=== PATIENT | female | born 1990 | race Caucasian/White ===

== ENCOUNTER 2017-06-22 15:38 | Emergency (ER) | payer MEDICAID, OTHER ==
[2017-06-22 15:49] VITALS: O2SAT 99
--- NOTE | 2017-06-22 16:25 | XRAY ---
Exam: Two-view chest from 06/22/2017. Comparison: None. Indication: Foreign body check, patient states she swallowed the ball of a tongue ring about one hour before coming to the Emergency Department. Findings: Upright PA and lateral chest films are submitted for evaluation. The heart size and contour are normal. The felecia and mediastinal structures appear unremarkable. I see no radiopaque soft tissue or metallic foreign body within the projection of the thoracic esophagus or gastroesophageal junction. Mild mid thoracic dextroscoliosis is seen. The lungs are adequately inflated. No air space infiltrates, vascular congestion, pneumothorax, or pleural fluid is seen. The remainder the bones appears intact. Impression: 1. No acute cardiopulmonary disease is seen. 2. No metallic or other radiopaque soft tissue foreign body is seen within the projection of the chest, particularly the thoracic esophagus. 3. Mild mid thoracic dextro scoliosis.
--- NOTE | 2017-06-22 16:49 | ERPHSYRPT ---
- History of Present Illness Time Seen by Provider: 06/22/17 16:25 Source: patient Exam Limitations: no limitations Patient Subjective Stated Complaint: Pt states "I was eating a sandwhich and I swallowed my tongue ring and I can feel it in my throat" Triage Nursing Assessment: Pt alert and oriented X3, skin pwd. Pt ambulates without difficulty, able to speak in full sentences, appears in no distress. Physician History: States eating a sandwich today and swallowed her tongue ring. Pt. vomited and gaged several times but denies seeing tongue ring, but states feels like something stuck in my throat. Pt. without any resp. difficulty or swallowing problems. Pt. states feel like something is scratching my throat. Timing/Duration: today Severity: mild Modifying Factors: Improves With: eating (worsens) Associated Symptoms: vomiting, cough, No abdominal pain, No shortness of breath , No diaphoresis, No chest pain, No fever Allergies/Adverse Reactions: Penicillins Allergy (Severe, Verified 06/22/17 15:49) Home Medications: No Reportable Medications [No Reported Medications] 06/22/17 [History] Hx Tetanus, Diphtheria Vaccination/Date Given: No Hx Influenza Vaccination/Date Given: No Hx Pneumococcal Vaccination/Date Given: No Immunizations Up to Date: Yes - Review of Systems Constitutional: No Fever, No Chills Eyes: No Symptoms Ears, Nose, & Throat: No Symptoms, Throat Pain Respiratory: Cough, No Dyspnea Cardiac: No Chest Pain, No Edema, No Syncope Abdominal/Gastrointestinal: Nausea, Vomiting, No Abdominal Pain, No Diarrhea Genitourinary Symptoms: No Symptoms, No Dysuria Musculoskeletal: No Back Pain, No Neck Pain Skin: No Rash Neurological: No Dizziness, No Focal Weakness, No Sensory Changes Psychological: No Symptoms Endocrine: No Symptoms All Other Systems: Reviewed and Negative - Past Medical History Pertinent Past Medical History: No - Past Surgical History Past Surgical History: No - Social History Smoking Status: Current every day smoker How long have you smoked: years Exposure to second hand smoke: Yes Drug Use: none Patient Lives Alone: No - Female History Hx Last Menstrual Period: unknown - Nursing Vital Signs Nursing Vital Signs: Initial Vital Signs Temperature 98.7 F 06/22/17 15:45 Pulse Rate 80 06/22/17 15:45 Respiratory Rate 16 06/22/17 15:45 Blood Pressure 131/57 06/22/17 15:45 O2 Sat by Pulse Oximetry 99 06/22/17 15:45 Pain Scale Pain Intensity 0 - Physical Exam General Appearance: no apparent distress, alert Eye Exam: PERRL/EOMI, eyes nml inspection Ears, Nose, Throat Exam: normal ENT inspection, TMs normal, pharynx normal, moist mucous membranes Neck Exam: normal inspection, non-tender, supple, full range of motion Respiratory Exam: normal breath sounds, lungs clear, No respiratory distress Cardiovascular Exam: regular rate/rhythm, normal heart sounds, normal peripheral pulses Gastrointestinal/Abdomen Exam: soft, normal bowel sounds, No tenderness, No mass Back Exam: normal inspection, normal range of motion, No CVA tenderness, No vertebral tenderness Extremity Exam: normal inspection, normal range of motion, pelvis stable Neurologic Exam: alert, oriented x 3, cooperative, normal mood/affect, nml cerebellar function, nml station & gait, sensation nml, No motor deficits Skin Exam: normal color, warm, dry, No rash Lymphatic Exam: No adenopathy SpO2: 99 Oxygen Delivery: Room Air - Course Nursing assessment & vital signs reviewed: Yes - Radiology Exams Chest X-ray Interpretation: Teleradiologist Report, No Infiltrates, Other (No FB seen) Ordered Tests: Active Orders 24 hr Category Date Time Status CHEST 2 VIEWS (PA AND LAT) Stat Exams 06/22/17 15:46 Completed - Progress Progress: improved Progress Note: 06/22/17 16:47 Pt. able to swallow liquids without difficulty. No resp. distress, O2 sat > 95% . Explained to pt. that there is no sign of FB on CXR and reassured that FB did not go down trachea Counseled pt/family regarding: diagnosis, rad results - Departure Time of Disposition: 16:49 Departure Disposition: Home Clinical Impression: Foreign body ingestion Condition: Stable Critical Care Time: No Referrals: JASMIN TOLEDO [Primary Care Provider] - Additional Instructions: Return for worse sore throat, difficulty swallowing/breathing or any problems
[2017-06-22 16:55] VITALS: BP 125/65; PULSE 78
== END 2017-06-22 16:55 | disposition home or self-care (01) ==
LOC: ED 15:38
DX: T18.9XXA Foreign body of alimentary tract, part unspecified, initial encounter (principal)
CPT/HCPCS: 71020; 99283

== ENCOUNTER 2017-10-27 18:35 | Emergency (ER) | payer OTHER ==
[2017-10-27] MEDS ORDERED: Sodium Chloride 0.9% 1000 ML 1,000 ML IV STA (19:18)
--- NOTE | 2017-10-27 19:26 | ERPHSYRPT ---
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 She had a miscarriage at 5 weeks 3 years ago. She denies cramps, nausea, vomiting, or fever, no severe bleeding only spotting, blood on paper, when she wipes. She is only c/o mild suprapubic pressure, denies urinary complaints, diarrhea, SOB, other complaints. Timing/Duration: today Activites at Onset: none Quality: pressure Onset Location: suprapubic Pain Radiation: none Severity of Pain-Max: none Severity of Pain-Current: none Prior abdominal problems: none Sexual intercourse history: non-contributory Modifying Factors: Improves With: nothing Associated Symptoms: denies symptoms Allergies/Adverse Reactions: Penicillins Allergy (Severe, Verified 10/27/17 19:01) Home Medications: Vits W-Ca,Fe,FA(<1Mg) [] 1 each PO DAILY 10/27/17 [History] Hx Tetanus, Diphtheria Vaccination/Date Given: No Hx Influenza Vaccination/Date Given: No Hx Pneumococcal Vaccination/Date Given: No - Review of Systems Constitutional: No Symptoms Abdominal/Gastrointestinal: Other (suprapubic pressure) Genitourinary Symptoms: Vaginal Bleeding All Other Systems: Reviewed and Negative - Past Medical History Pertinent Past Medical History: Yes - Past Surgical History Past Surgical History: No - Social History Smoking Status: Current every day smoker How long have you smoked: YRS Exposure to second hand smoke: No Drug Use: none Patient Lives Alone: No - Female History Hx Last Menstrual Period: SEP 05 2017 Hx Now: Yes - Nursing Vital Signs Nursing Vital Signs: Initial Vital Signs Temperature 98.7 F 10/27/17 18:56 Pulse Rate 87 10/27/17 18:56 Respiratory Rate 20 10/27/17 18:56 Blood Pressure 128/63 10/27/17 18:56 O2 Sat by Pulse Oximetry 97 10/27/17 18:56 Pain Scale Pain Intensity 2 - Physical Exam General Appearance: no apparent distress Ears, Nose, Throat Exam: normal ENT inspection Neck Exam: normal inspection, non-tender Respiratory Exam: normal breath sounds Cardiovascular Exam: regular rate/rhythm, normal heart sounds, normal peripheral pulses, No murmur Gastrointestinal/Abdomen Exam: soft, normal bowel sounds, No tenderness, No distention, No mass Pelvic Exam: normal external exam, other (small amount of "old " blood in vagina , no active bleeding, os closed), No adnexal tenderness, No adnexal mass, No cervical motion tenderness, No vaginal bleeding, No uterine tenderness, No vaginal discharge Back Exam: normal inspection, No CVA tenderness Extremity Exam: normal inspection Neurologic Exam: alert, oriented x 3 Skin Exam: normal color, warm, dry, No rash Lymphatic Exam: No adenopathy SpO2 Interpretation: normal SpO2: 97 Oxygen Delivery: Room Air - Radiology Ultrasound Exam Pelvis Ultrasound: Other (no obvious intrauterine noted) Ordered Tests: Active Orders 24 hr Category Date Time Status IV Insertion STAT Care 10/27/17 19:18 Active Pelvic Exam Assist STAT Care 10/27/17 19:18 Active OB <14 WKS 1ST GESTATION [US] Stat Exams 10/27/17 19:19 Taken CBC W DIFF Stat Lab 10/27/17 19:40 Completed CMP Stat Lab 10/27/17 19:40 Completed CULTURE,URINE Stat Lab 10/27/17 19:40 Received HCG, Quantitative (Inhouse) Stat Lab 10/27/17 19:40 Completed PT INR [PROTIME WITH INR] Stat Lab 10/27/17 19:40 Completed UA W/ MICROSCOPIC Stat Lab 10/27/17 19:40 Completed Wet Prep Stat Lab 10/27/17 Uncollected Medication Summary Discontinued Medications Generic Name Dose Route Start Last Admin Trade Name Freq PRN Reason Stop Dose Admin Sodium Chloride 1,000 mls @ 999 mls/hr 10/27/17 19:18 10/27/17 19:38 Sodium Chloride 0.9% 1000 Ml IV 10/27/17 20:18 999 mls/hr .Q1H1M STA Administration Sodium Chloride Confirm 10/27/17 19:31 Sodium Chloride 0.9% 1000 Ml Administered 10/27/17 19:32 Dose 1,000 mls @ ud .ROUTE .STK-MED ONE Nitrofurantoin Macrocrystals 100 mg 10/27/17 21:28 Macrobid 100mg Capsule PO 10/27/17 21:29 STAT ONE Rho Immune Globulin 300 mcg 10/27/17 21:28 Rhogam Plus 300 Mcg IM 10/27/17 21:29 STAT ONE Lab/Rad Data: Laboratory Result Diagrams 10/27/17 19:40 10/27/17 19:40 Laboratory Results 10/27/17 10/27/17 10/27/17 Range/Units 19:40 19:40 19:40 WBC (4.0-10.5) K/mm3 RBC (4.1-5.4) M/mm3 Hgb (12.0-16.0) gm/dl Hct (35-47) % MCV (78-100) fl MCH (26-32) pg MCHC (32-36) g/dl RDW (11.5-14.0) % Plt Count (150-450) K/mm3 MPV (6-9.5) fl Gran % (36.0-66.0) % Lymphocytes % (24.0-44.0) % Monocytes % (0.0-12.0) % Eosinophils % (0.00-5.0) % Basophils % (0.0-0.4) % Basophils # (0-0.4) INR 1.05 (0.8-3.0) Sodium (136-145) mEq/L Potassium (3.5-5.1) mEq/L Chloride (98-107) mEq/L Carbon Dioxide (21-32) mEq/L Anion Gap (5-15) MEQ/L BUN (9-20) mg/dL Creatinine (0.55-1.30) mg/dl Estimated GFR ML/MIN Glucose (70-110) MG/DL Calcium (8.5-10.1) mg/dL Total Bilirubin (0.2-1.0) mg/dL AST (15-37) U/L ALT (12-78) U/L Alkaline Phosphatase (46-116) U/L Serum Total Protein (6.4-8.2) gm/dL Albumin (3.4-5.0) g/dL Beta HCG, Quant (0-6) IU/L Ur Collection Type CLEAN CATCH Urine Color YELLOW (YELLOW) Urine Appearance SLIGHTLY CLOUDY (CLEAR) Urine pH 5.0 (5-6) Ur Specific [place] 1.030 (1.005-1.025) Urine Protein 30 (Negative) Urine Ketones NEGATIVE (NEGATIVE) Urine Blood 250 (0-5) Lior/ul Urine Nitrite NEGATIVE (NEGATIVE) Urine Bilirubin NEGATIVE (NEGATIVE) Urine Urobilinogen NORMAL (0-1) mg/dL Ur Leukocyte Esterase 1+ (NEGATIVE) Urine Microscopic RBC 5-10 (0-2) /HPF Urine Microscopic WBC 15-25 (0-5) /HPF Ur Epithelial Cells MODERATE (FEW) /HPF Calcium Oxalate Crystal 5-10 (NEGATIVE) /HPF Urine Bacteria FEW (NEGATIVE) /HPF Urine Culture Reflexed YES (NO) Urine Glucose NEGATIVE (NEGATIVE) mg/dL Specimen Received 10/27/171939 ABO Group A Rh Factor NEGATIVE Antibody Screen NEGATIVE (NEGATIVE) 10/27/17 10/27/17 Range/Units 19:40 19:40 WBC 13.0 H (4.0-10.5) K/mm3 RBC 4.09 L (4.1-5.4) M/mm3 Hgb 12.5 (12.0-16.0) gm/dl Hct 37.8 (35-47) % MCV 92.4 (78-100) fl MCH 30.5 (26-32) pg MCHC 33.1 (32-36) g/dl RDW 12.3 (11.5-14.0) % Plt Count 228 (150-450) K/mm3 MPV 10.3 H (6-9.5) fl Gran % 59.5 (36.0-66.0) % Lymphocytes % 31.4 (24.0-44.0) % Monocytes % 7.9 (0.0-12.0) % Eosinophils % 0.8 (0.00-5.0) % Basophils % 0.4 (0.0-0.4) % Basophils # 0.05 (0-0.4) INR (0.8-3.0) Sodium 140 (136-145) mEq/L Potassium 3.8 (3.5-5.1) mEq/L Chloride 104 (98-107) mEq/L Carbon Dioxide 26.8 (21-32) mEq/L Anion Gap 13.4 (5-15) MEQ/L BUN 9 (9-20) mg/dL Creatinine 1.01 (0.55-1.30) mg/dl Estimated GFR > 60 ML/MIN Glucose 96 (70-110) MG/DL Calcium 8.9 (8.5-10.1) mg/dL Total Bilirubin 0.20 (0.2-1.0) mg/dL AST 20 (15-37) U/L ALT 30 (12-78) U/L Alkaline Phosphatase 80 (46-116) U/L Serum Total Protein 7.8 (6.4-8.2) gm/dL Albumin 4.1 (3.4-5.0) g/dL Beta HCG, Quant 1650 H (0-6) IU/L Ur Collection Type Urine Color (YELLOW) Urine Appearance (CLEAR) Urine pH (5-6) Ur Specific [place] (1.005-1.025) Urine Protein (Negative) Urine Ketones (NEGATIVE) Urine Blood (0-5) Lior/ul Urine Nitrite (NEGATIVE) Urine Bilirubin (NEGATIVE) Urine Urobilinogen (0-1) mg/dL Ur Leukocyte Esterase (NEGATIVE) Urine Microscopic RBC (0-2) /HPF Urine Microscopic WBC (0-5) /HPF Ur Epithelial Cells (FEW) /HPF Calcium Oxalate Crystal (NEGATIVE) /HPF Urine Bacteria (NEGATIVE) /HPF Urine Culture Reflexed (NO) Urine Glucose (NEGATIVE) mg/dL Specimen Received ABO Group Rh Factor Antibody Screen (NEGATIVE) - Progress Progress: improved Progress Note: 10/27/17 21:35 Pt had no active bleeding, stable hemodynamically, she is A negative, given 300 microgm Rhogam, and 100 mg Macrobid PO for UTI. I explained the results to her, and the need for a follow up HCG in 2 days, she understood, she has appointment scheduled with Dr Fry on Tuesday AM ( 10/31/17). 10/27/17 21:[address] Fry, discussed our findings and patient's current condition, he agreed with our plan to discharge her home, and will follow up as scheduled with her HCG level. I instructed her to rest drink plenty of fluids, and return if severe pain, bleeding, fever> 102F, she understood, and will follow up with Dr Fry as scheduled. Discussed with : Ang Will see patient in: office Counseled pt/family regarding: lab results, diagnosis, need for follow-up, rad results - Departure Time of Disposition: 21:41 Departure Disposition: Home Clinical Impression: Vaginal bleeding affecting early UTI (urinary tract infection) Qualifiers: Urinary tract infection type: site unspecified Hematuria presence: without hematuria Qualified Code(s): N39.0 - Urinary tract infection, site not specified Condition: Stable Critical Care Time: No Referrals: JASMIN TOLEDO [Primary Care Provider] - Additional Instructions: Rest x 2-3 days, nothing vaginally, drink plenty of fluids, return if severe pain, vomiting, fever> 102 F or severe bleeding, weakness! Return to lab in 2 days for repeat labs, and keep appointment with Dr Fry as scheduled!
[2017-10-27] MEDS ORDERED: Sodium Chloride 0.9% 1000 ML 1,000 ML ONE (19:31)
[2017-10-27 19:54] LABS: BASOPHIL % 0.4 % (0.0-0.4); Basophil (Absolute #) 0.05 (0-0.4); Eosinophil % 0.8 % (0.00-5.0); Eosinophil (Absolute #) 0.11 (0-0.5); Granulocyte Absolute (ANC) 7.75 (1.4-6.9); Granulocytes % 59.5 % (36.0-66.0); Hematocrit 37.8 % (35-47); Hemoglobin 12.5 gm/dl (12.0-16.0); Lymphocytes % 31.4 % (24.0-44.0); Mean Cell Volume 92.4 fl (78-100); Mean Corpuscular Hgb Concent. 33.1 g/dl (32-36); Mean Platelet Volume 10.3 fl (6-9.5); Monocyte (Absolute #) 1.03 (0.0-1.3); Monocytes % 7.9 % (0.0-12.0); Platelet Count 228 K/mm3 (150-450); Red Blood Count 4.09 M/mm3 (4.1-5.4); Red Cell Distribution Width 12.3 % (11.5-14.0)
[2017-10-27 20:08] LABS: INR 1.05 (0.8-3.0)
[2017-10-27 20:24] LABS: Mean Corpuscular Hemoglobin 30.5 pg (26-32)
[2017-10-27 20:36] LABS: Appearance SLIGHTLY CLOUDY (CLEAR)
[2017-10-27 20:41] LABS: ALBUMIN 4.1 g/dL (3.4-5.0); ALKALINE PHOSPHATASE 80 U/L (46-116); ANION GAP 13.4 MEQ/L (5-15); BLOOD UREA NITROGEN 9 mg/dL (9-20); CHLORIDE 104 mEq/L (98-107); Calcium 8.9 mg/dL (8.5-10.1); Carbon Dioxide 26.8 mEq/L (21-32); Creatinine 1 1.01 mg/dl (0.55-1.30); EST GLOMERULAR FILTRATION RATE > 60 ML/MIN; Glucose 96 MG/DL (70-110); HCG, Quantitative (Inhouse) 1650 IU/L (0-6); Potassium 3.8 mEq/L (3.5-5.1); SGOT/AST 20 U/L (15-37); SGPT/ALT 30 U/L (12-78); SODIUM 140 mEq/L (136-145); Total Protein 7.8 gm/dL (6.4-8.2)
[2017-10-27 20:44] LABS: ABO TYPING A; Antibody Screen NEGATIVE (NEGATIVE); RH TYPING NEGATIVE
[2017-10-27 21:08] VITALS: O2SAT 97
[2017-10-27 21:11] LABS: Bilirubin NEGATIVE (NEGATIVE); Blood 250 Ery/ul (0-5); Glucose NEGATIVE (NEGATIVE); Ketones NEGATIVE (NEGATIVE); Leukocyte Esterase 1+ (NEGATIVE); Nitrite NEGATIVE (NEGATIVE); Protein,Urine Dip 30 (Negative); Urobilinogen NORMAL mg/dL (0-1); WBC 15-25 /HPF (0-5)
[2017-10-27 21:12] LABS: Bacteria FEW /HPF (NEGATIVE); Epithelial Cells MODERATE /HPF (FEW)
[2017-10-27] MEDS ORDERED: Rhogam Plus 300 MCG IM ONE (21:28)
[2017-10-27] MEDS ORDERED: Macrobid 100MG Capsule PO ONE (21:28)
[2017-10-27] MEDS ORDERED: Macrobid 100MG Capsule ONE (22:10)
[2017-10-27 22:25] LABS: Bacteria Rare; Clue Cells None Seen; Red Blood Cells Rare; Trichomonas None Seen; White Blood Cells Rare; Yeast None Seen
[2017-10-27 22:30] VITALS: BP 122/68; PULSE 82
--- NOTE | 2017-10-28 09:04 | XRAY ---
Indication: Vaginal bleeding. 8 weeks . Two-dimensional transabdominal early OB ultrasound performed. Comparison: None Uterus is anteverted with a single intrauterine gestational sac measuring 0.52 cm, too small to calculate gestational age. No pole or heart tones. 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 No abnormal endometrial cavity fluid collection. Right ovary measures 3.6 x 1.3 x 3.1 cm and the left measures 2.9 x 2.1 x 2.2 cm. Normal perfusion bilaterally. No suspicious adnexal mass or free fluid. Impression: Single intrauterine gestational sac too small to calculate gestational age. No pole/heart tones. Mobile gestational sac for which early spontaneous not completely excluded. Correlate with serial beta-hCG and follow-up sonogram. Comment: Preliminary report was given.
== END 2017-10-27 22:30 | disposition home or self-care (01) ==
LOC: ED 18:35
DX: O46.91 Antepartum hemorrhage, unspecified, first trimester (principal); O23.41 Unspecified infection of urinary tract in pregnancy, first trimester; Z3A.08 8 weeks gestation of pregnancy
CPT/HCPCS: 36000; 36415; 76801; 80053; 81000; 84702; 85025; 85610; 86850; 86900; 86901; 87086; 87210; 87490; 87590; 96372; 99284; J2790; A9270-GY

== ENCOUNTER 2018-10-21 11:40 | Inpatient (IN) | payer OTHER | END 2018-10-23 10:55 | disposition home or self-care (01) | DRG 807 | LOC: OB 11:40 | PROC: 10E0XZZ Delivery of Products of Conception, External Approach (ICD-10-PCS; principal; 2018-10-21) | DX: O80 Encounter for full-term uncomplicated delivery (principal); Z37.0 Single live birth; Z3A.38 38 weeks gestation of pregnancy ==

== ENCOUNTER 2019-09-09 14:30 | Emergency (ER) | payer OTHER ==
[2019-09-09 14:44] VITALS: BP 123/84; PULSE 91; O2SAT 100
[2019-09-09] MEDS ORDERED: BACTRIM DS TABLET PO ONE ×2 (15:36→16:42)
[2019-09-09] MEDS ORDERED: DELTASONE 10 MG PO ONE (15:37)
--- NOTE | 2019-09-09 16:04 | ERPHSYRPT ---
- History of Present Illness Time Seen by Provider: 09/09/19 14:55 Source: patient Exam Limitations: no limitations Patient Subjective Stated Complaint: Insect bite Triage Nursing Assessment: Patient ambulated into ED and transferred self to bed. Patient A+O X3. Patient's skin pink, warm and dry. Patient complains of insect bite possible spider bite to top of right arm. Patient denies pain or discomfort. Patient has hard, round area with warmth and redness noted to right arm. Physician History: 28 y/o white female presents with one day h/o worsening right inner forearm redness. pt noticed a central punctate eschar yesterday. redness expanding outwardly. minimal pain. no drainage. no odor. pt had been using antibx ointment without benefit. Severity: mild Location: extremities (right upper ext forearm) Possible Causes: insect bite Associated Symptoms: change in skin texture, other (redness) Allergies/Adverse Reactions: Penicillins Allergy (Severe, Verified 09/09/19 14:36) Hx Tetanus, Diphtheria Vaccination/Date Given: No Hx Influenza Vaccination/Date Given: No Hx Pneumococcal Vaccination/Date Given: No Immunizations Up to Date: Yes - Review of Systems Constitutional: No Symptoms Eyes: No Symptoms Ears, Nose, & Throat: No Symptoms Respiratory: No Symptoms Cardiac: No Symptoms Abdominal/Gastrointestinal: No Symptoms Genitourinary Symptoms: No Symptoms Musculoskeletal: No Symptoms Skin: Cellulitis Neurological: No Symptoms Psychological: No Symptoms Endocrine: No Symptoms Hematologic/Lymphatic: No Symptoms Immunological/Allergic: No Symptoms All Other Systems: Reviewed and Negative - Past Medical History Pertinent Past Medical History: No Neurological History: No Pertinent History ENT History: No Pertinent History Cardiac History: No Pertinent History Respiratory History: No Pertinent History Endocrine Medical History: No Pertinent History Musculoskeletal History: No Pertinent History GI Medical History: No Pertinent History History: No Pertinent History Psycho-Social History: No Pertinent History Female Reproductive Disorders: No Pertinent History - Past Surgical History Past Surgical History: No Neuro Surgical History: No Pertinent History Cardiac: No Pertinent History Respiratory: No Pertinent History Gastrointestinal: No Pertinent History Genitourinary: No Pertinent History Musculoskeletal: No Pertinent History Female Surgical History: No Pertinent History - Social History Smoking Status: Current every day smoker How long have you smoked: years Exposure to second hand smoke: No Drug Use: none Patient Lives Alone: No - Female History Hx Last Menstrual Period: last week Hx Now: No - Nursing Vital Signs Nursing Vital Signs: Initial Vital Signs Temperature 98.9 F 09/09/19 14:37 Pulse Rate 91 H 09/09/19 14:37 Respiratory Rate 18 09/09/19 14:37 Blood Pressure 123/84 09/09/19 14:37 O2 Sat by Pulse Oximetry 100 09/09/19 14:37 Pain Scale Pain Intensity 0 - Physical Exam General Appearance: no apparent distress, alert Eye Exam: PERRL/EOMI, eyes nml inspection Ears, Nose, Throat Exam: normal ENT inspection, moist mucous membranes Neck Exam: normal inspection, non-tender, supple, full range of motion Respiratory Exam: No chest tenderness Cardiovascular Exam: normal peripheral pulses Gastrointestinal/Abdomen Exam: No tenderness Pelvic Exam: not done Rectal Exam: not done Back Exam: normal inspection, normal range of motion, CVA tenderness, No vertebral tenderness Extremity Exam: normal range of motion, pelvis stable, inflammation, swelling ( right forearm), tenderness (mild) Neurologic Exam: alert, oriented x 3, cooperative, 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 no pus. ) Lymphatic Exam: No adenopathy SpO2 Interpretation: normal SpO2: 100 O2 Delivery: Room Air - Course Nursing assessment & vital signs reviewed: Yes Ordered Tests: Medication Summary Discontinued Medications Generic Name Dose Route Start Last Admin Trade Name Freq PRN Reason Stop Dose Admin Prednisone 10 mg 09/09/19 15:37 Deltasone 10 Mg PO 09/09/19 15:38 STAT ONE Trimethoprim/Sulfamethoxazole 1 tab 09/09/19 15:36 Bactrim Ds Tablet PO 09/09/19 15:37 STAT ONE - Progress Progress: unchanged Counseled pt/family regarding: diagnosis, need for follow-up - Departure Departure Disposition: Home Clinical Impression: Cellulitis Condition: Stable Critical Care Time: No Referrals: MACARENA MORE MD [Primary Care Provider] - Additional Instructions: keep site clean daily with soap and water. no ointments, lotion or creams. take medications as prescribed. follow up with primary doctor for further management Prescriptions: Prednisone 10 mg [Deltasone 10 mg] 10 mg PO BID #6 tablet Smz/Tmp Ds Tablet [Bactrim Ds Tablet] 1 udtab PO BID #14 tablet
[2019-09-09] MEDS ORDERED: DELTASONE 20 MG ONE (16:42)
== END 2019-09-09 16:56 | disposition home or self-care (01) ==
LOC: ED 14:30
DX: L03.113 Cellulitis of right upper limb (principal); W57.XXXA Bitten or stung by nonvenomous insect and other nonvenomous arthropods, initial encounter; Y93.9 Activity, unspecified
CPT/HCPCS: 99283; A9270-GY

== ENCOUNTER 2020-12-22 17:37 | Inpatient (IN) | payer OTHER ==
[2020-12-22] MEDS ORDERED: Compazine 10 MG/2 ML IM PRN (18:55)
[2020-12-22] MEDS ORDERED: Lactated Ringers 1,000 ML IV ONE (20:00)
[2020-12-22] MEDS ORDERED: TYLENOL EXTRA STRENGTH 500 MG PO PRN (20:00)
[2020-12-22] MEDS ORDERED: Ephedrine Sulfate 50 MG/ML IV PRN (20:00)
[2020-12-22] MEDS ORDERED: PITOCIN 30 UNITS/ LR 500 ML 30 UNITS/500 ML IV.SOLN. IV SCH (20:00)
[2020-12-22 21:03] LABS: INR 1.05 (0.8-3.0); PROTIME 11.9 SECONDS (9.95-12.35)
[2020-12-22 21:04] LABS: BASOPHIL % 0.2 % (0.0-0.4); Basophil (Absolute #) 0.03 (0-0.4); Eosinophil % 0.3 % (0.00-5.0); Eosinophil (Absolute #) 0.05 (0-0.5); Hematocrit 31.4 % (35-47); Lymphocyte (Absolute #) 3.27 (1.0-4.6); Lymphocytes % 19.1 % (24.0-44.0); Mean Cell Volume 96.9 fl (78-100); Mean Corpuscular Hemoglobin 30.9 pg (26-32); Mean Corpuscular Hgb Concent. 31.8 g/dl (32-36); Monocyte (Absolute #) 0.68 (0.0-1.3); Neutrophil % 76.4 % (36.0-66.0); Platelet Count 321 K/mm3 (150-450); Red Blood Count 3.24 M/mm3 (4.1-5.4); Red Cell Distribution Width 12.7 % (11.5-14.0); White Blood Count 17.1 K/mm3 (4.0-10.5)
[2020-12-22 21:05] LABS: PTT 25.4 SECONDS (25.3-37.0)
[2020-12-22 21:29] LABS: Amphetamine,Urine NEGATIVE (NEGATIVE); Barbiturate,Urine NEGATIVE (NEGATIVE); Benzodiazepine,Urine NEGATIVE (NEGATIVE); Cocaine,Urine NEGATIVE (NEGATIVE); Methadone,Urine NEGATIVE (NEGATIVE); Opiate,Urine NEGATIVE (NEGATIVE); PCP,Urine NEGATIVE (NEGATIVE); THC,Urine NEGATIVE (NEGATIVE)
[2020-12-22 21:44] LABS: ALBUMIN 3.7 g/dL (3.5-5.0); ALKALINE PHOSPHATASE 111 U/L (38-126); Creatinine 1 0.69 mg/dL (0.52-1.04); EST GLOMERULAR FILTRATION RATE > 60.0 ML/MIN; SGOT/AST 23 U/L (14-36); SGPT/ALT 16 U/L (0-35); T4 (Thyroxine) 12.2 ug/dL (5.53-10.96); Total Protein 6.9 g/dL (6.3-8.2)
[2020-12-22] MEDS: OB EPIDURAL NAROPIN/SUFENTANIL IN NACL EPIDURAL PRN (22:00)
[2020-12-22] MEDS: Lactated Ringers 1,000 ML IV SCH (22:00)
[2020-12-22 22:02] LABS: Direct Bilirubin 0 mg/dL (0.0-0.4)
[2020-12-23] MEDS: Lactated Ringers 1,000 ML IV SCH ×2 (03:56→08:59)
--- NOTE | 2020-12-23 08:43 | XRAY ---
Indication: demise. Comparison: Taken earlier in the day. Repeat limited OB ultrasound again demonstrates a single intrauterine . Again no heart tones or movements favoring demise. Comment: Preliminary report was given.
[2020-12-23] MEDS: OB EPIDURAL NAROPIN/SUFENTANIL IN NACL EPIDURAL PRN (09:03)
[2020-12-23] MEDS ORDERED: Dermoplast Spray TP PRN (13:47)
[2020-12-23] MEDS ORDERED: MOTRIN 400 MG PO PRN (13:47)
[2020-12-23] MEDS ORDERED: TUCKS TP PRN (13:47)
[2020-12-23] MEDS ORDERED: NORCO 5/325 MG PO PRN (13:47)
[2020-12-23] MEDS ORDERED: Rhogam Plus 300 MCG IM ONE (16:00)
[2020-12-23 20:57] VITALS: BP 124/70; PULSE 74; O2SAT 100
[2020-12-24] MEDS ORDERED: FERREX 150 PO SCH (10:00)
--- NOTE | 2020-12-24 13:27 | DS ---
ADMISSION DIAGNOSIS: demise 30 weeks and 4 days. DISCHARGE DIAGNOSES: 1) DEMISE STATUS POST SPONTANEOUS VAGINAL DELIVERY. 2) CORD ACCIDENT. HOSPITAL COURSE: The patient is a 30 year-old 6, para 3-0-2-3, who was seen in the office on 12/22/2020. She was 30 weeks and 4 days estimated gestational age with no previous problems. heart tones were unable to be auscultated in the office therefore she was sent for ultrasound which showed no heart activity or movement consistent with demise. She was admitted to the hospital and received vaginal Cytotec 50 mcg x3 doses and progressed 3 to 4 cm. Following the third dose four hours later she was started on Pitocin and delivered a 30 week nonviable male from the vertex presentation with an extremely tight nuchal cord x3 reduced at delivery with a true knot in the cord. No other obvious abnormalities were appreciable on exam of the fetus. The placenta was delivered spontaneously intact. It was sent for pathology as well as chromosomal testing. The placenta appeared to be fully intact with no obvious gross abnormalities on exam. She had minimal lochia and no pain following delivery therefore she requested to be discharged home later in the evening after delivery and was advised to follow up in the office in one week. She had no repair during delivery and very minimal blood loss at the time of delivery as well. DISCHARGE MEDICATIONS: Ferrous sulfate 325 mg twice a day, Colace 100 mg twice a day. DISCHARGE FOLLOW UP: She was advised to follow up in one week. She was offered bereavement counseling resources and support with offering of arrangements, etc.
== END 2020-12-23 20:45 | disposition home or self-care (01) | DRG 806 ==
LOC: MED SURG 18:49 → OBSVTOIN 21:25
PROVIDERS: ADMIT Family Medicine; ATTEND Family Medicine
PROC: 10E0XZZ Delivery of Products of Conception, External Approach (ICD-10-PCS; principal; 2020-12-22)
DX: O36.4XX0 Maternal care for intrauterine death, not applicable or unspecified (principal); O04.89 (Induced) termination of pregnancy with other complications; Z37.1 Single stillbirth; O69.2XX0 Labor and delivery complicated by other cord entanglement, with compression, not applicable or unspecified; Z3A.30 30 weeks gestation of pregnancy
CPT/HCPCS: 36415; 76815; 76816; 80076; 80307; 81003; 81241; 82565; 84436; 84443; 85025; 85300; 85384; 85461; 85610; 85613; 85670; 85730; 86592; 86644; 86645; 86747; 86850; 86870; 87040; 87254; G0378; J2590; J2790; J2795; A9270-GY

== ENCOUNTER 2021-09-03 10:08 | Observation (INO) | payer OTHER ==
[2021-09-07 16:57] VITALS: BP 132/70; PULSE 75
== END 2021-09-03 11:10 | disposition home or self-care (01) ==
LOC: OB 10:08
PROVIDERS: ADMIT Family Medicine; ATTEND Family Medicine
DX: Z34.83 Encounter for supervision of other normal pregnancy, third trimester (principal); Z3A.28 28 weeks gestation of pregnancy; Z87.59 Personal history of other complications of pregnancy, childbirth and the puerperium
CPT/HCPCS: 59025; G0378

== ENCOUNTER 2021-09-07 11:11 | Observation (INO) | payer OTHER ==
[2021-09-07 11:49] LABS: Absolute Neutrophil Ct (ANC) 13.94 (1.4-6.9); BASOPHIL % 0.2 % (0.0-0.4); Basophil (Absolute #) 0.03 (0-0.4); Eosinophil % 0.6 % (0.00-5.0); Eosinophil (Absolute #) 0.11 (0-0.5); Hematocrit 31.9 % (35-47); Hemoglobin 10.1 gm/dl (12.0-16.0); Lymphocyte (Absolute #) 3.29 (1.0-4.6); Lymphocytes % 17.9 % (24.0-44.0); Mean Cell Volume 98.2 fl (78-100); Mean Corpuscular Hemoglobin 31.1 pg (26-32); Mean Corpuscular Hgb Concent. 31.7 g/dl (32-36); Mean Platelet Volume 8.9 fl (7.5-11.0); Monocyte (Absolute #) 0.97 (0.0-1.3); Monocytes % 5.3 % (0.0-12.0); Platelet Count 301 K/mm3 (150-450); Red Blood Count 3.25 M/mm3 (4.1-5.4); Red Cell Distribution Width 12.6 % (11.5-14.0); White Blood Count 18.3 K/mm3 (4.0-10.5)
[2021-09-07 12:05] LABS: ALBUMIN 3.4 g/dL (3.5-5.0); ALKALINE PHOSPHATASE 92 U/L (38-126); ANION GAP 9.7 MEQ/L (5-15); BLOOD UREA NITROGEN 9 mg/dL (7-17); CHLORIDE 107 mmol/L (98-107); Calcium 8.8 mg/dL (8.4-10.2); Carbon Dioxide 24 mmol/L (22-30); Creatinine 1 0.69 mg/dL (0.52-1.04); EST GLOMERULAR FILTRATION RATE > 60.0 ML/MIN; Glucose 90 mg/dL (74-106); Potassium 4.1 mmol/L (3.5-5.1); SGOT/AST 18 U/L (14-36); SGPT/ALT 14 U/L (0-35); SODIUM 137 mmol/L (137-145); Total Protein 6.3 g/dL (6.3-8.2); Uric Acid 4.8 mg/dL (2.6-6.0)
--- NOTE | 2021-09-07 12:37 | XRAY ---
Indication: -induced hypertension. Evaluate NAIMA. Limited OB ultrasound demonstrates a single intrauterine with heart rate 125 BPM. 4 quadrant NAIMA is 15.6 cm, largest pocket 5.3 cm.
[2021-09-07 17:13] VITALS: BP 132/70; PULSE 75
== END 2021-09-07 13:10 | disposition home or self-care (01) ==
LOC: OB 11:11
PROVIDERS: ADMIT Family Medicine; ATTEND Family Medicine
DX: Z34.83 Encounter for supervision of other normal pregnancy, third trimester (principal); Z3A.29 29 weeks gestation of pregnancy; R03.0 Elevated blood-pressure reading, without diagnosis of hypertension
CPT/HCPCS: 36415; 59025; 76815; 80053; 84550; 85025; G0378

== ENCOUNTER 2021-09-16 09:00 | Observation (INO) | payer OTHER ==
[2021-09-16 10:07] VITALS: BP 114/59; PULSE 70
--- NOTE | 2021-09-16 10:10 | XRAY ---
Indication: Hypertension. Ultrasound biophysical profile study performed. Comparison: None Single intrauterine with heart rate 155 BPM. Four-quadrant NIAMA is 15.6 cm, largest pocket 7 cm. 2 points given for breathing, movement, tone, and qualitative amniotic fluid volume. Impression: Total biophysical profile score is 8 out of 8.
[2021-09-16 10:50] LABS: 24 HR TOT. PROTEIN CALCULATION 0.486 GM/DAY (0.04-0.15); CREATININE CLEARANCE 234.24 ML/MIN; Creatinine Urine 89.3 mg/dL
== END 2021-09-16 10:45 | disposition home or self-care (01) ==
LOC: OB 09:00
PROVIDERS: ADMIT Family Medicine; ATTEND Family Medicine
DX: O09.93 Supervision of high risk pregnancy, unspecified, third trimester (principal); Z3A.30 30 weeks gestation of pregnancy
CPT/HCPCS: 59025; 76818; 81050; 82575; 84156; G0378

== ENCOUNTER 2021-09-22 08:04 | Observation (INO) | payer OTHER ==
[2021-09-22 10:12] VITALS: BP 115/64; PULSE 77; O2SAT 98
--- NOTE | 2021-09-22 10:22 | XRAY ---
Indication: Supervision . Ultrasound biophysical profile study performed. Comparison: September 16, 2021. Again single intrauterine with heart rate 141 BPM. Four-quadrant NAIMA is 11.4 cm, largest pocket 4.8 cm. 2 points given for breathing, movements, tone, and qualitative amniotic fluid volume. Impression: Total biophysical score remains 8 out of 8.
== END 2021-09-22 11:25 | disposition home or self-care (01) ==
LOC: OB 09:02 → EDSTATUS 10:11
PROVIDERS: ADMIT Family Medicine; ATTEND Family Medicine
DX: Z34.83 Encounter for supervision of other normal pregnancy, third trimester (principal); Z3A.31 31 weeks gestation of pregnancy
CPT/HCPCS: 59025; 76818; G0378

== ENCOUNTER 2021-09-25 09:38 | Observation (INO) | payer OTHER ==
[2021-09-25 10:03] VITALS: BP 124/66
[2021-09-25 10:14] VITALS: PULSE 91; O2SAT 96
== END 2021-09-25 10:48 | disposition home or self-care (01) ==
LOC: OB 09:38
PROVIDERS: ADMIT Family Medicine; ATTEND Family Medicine
DX: Z34.83 Encounter for supervision of other normal pregnancy, third trimester (principal); Z3A.30 30 weeks gestation of pregnancy
CPT/HCPCS: 59025; G0378

== ENCOUNTER 2021-09-29 09:31 | Observation (INO) | payer OTHER ==
--- NOTE | 2021-09-29 10:20 | XRAY ---
Indication: Hypertension. Ultrasound biophysical profile study performed. Comparison: September 22, 2021. Again single intrauterine with heart rate 148 BPM. Four-quadrant NAIMA is 12.1 cm, largest pocket 4.7 cm. 2 points given for breathing, movements, tone, and amniotic fluid volume. Impression: Total biophysical profile score remains 8 out of 8.
[2021-09-29 10:49] VITALS: BP 120/75; PULSE 78
== END 2021-09-29 10:30 | disposition home or self-care (01) ==
LOC: OB 09:31
PROVIDERS: ADMIT Family Medicine; ATTEND Family Medicine
DX: Z34.83 Encounter for supervision of other normal pregnancy, third trimester (principal); Z3A.32 32 weeks gestation of pregnancy
CPT/HCPCS: 59025; 76818; G0378

== ENCOUNTER 2021-10-02 11:00 | Observation (INO) | payer OTHER ==
[2021-10-02 12:25] VITALS: BP 121/71; PULSE 83; O2SAT 99
== END 2021-10-02 12:00 | disposition home or self-care (01) ==
LOC: OB 11:00
PROVIDERS: ADMIT Family Medicine; ATTEND Family Medicine
DX: Z34.83 Encounter for supervision of other normal pregnancy, third trimester (principal); Z3A.33 33 weeks gestation of pregnancy
CPT/HCPCS: 59025; G0378

== ENCOUNTER 2021-10-05 08:47 | Observation (INO) | payer OTHER ==
[2021-10-05 09:36] VITALS: BP 106/59; PULSE 80
--- NOTE | 2021-10-05 09:37 | XRAY ---
Indication: Hypertension. Ultrasound biophysical profile study performed. Comparison: September 29, 2021. Again single intrauterine with heart rate 151 BPM. Four-quadrant NAIMA is 13.5 cm, largest pocket 3.8 cm. 2 points given for breathing, movements, tone, and amniotic fluid volume. Impression: Total biophysical profile score remains 8 out of 8.
== END 2021-10-05 10:00 | disposition home or self-care (01) ==
LOC: OB 08:47
PROVIDERS: ADMIT Family Medicine; ATTEND Family Medicine
DX: Z34.83 Encounter for supervision of other normal pregnancy, third trimester (principal); Z3A.33 33 weeks gestation of pregnancy
CPT/HCPCS: 59025; 76818; G0378

== ENCOUNTER 2021-10-08 09:02 | Observation (INO) | payer OTHER ==
[2021-10-08 09:30] VITALS: BP 119/61; PULSE 83
== END 2021-10-08 09:40 | disposition home or self-care (01) ==
LOC: OB 09:02
PROVIDERS: ADMIT Family Medicine; ATTEND Family Medicine
DX: Z34.83 Encounter for supervision of other normal pregnancy, third trimester (principal); Z3A.34 34 weeks gestation of pregnancy
CPT/HCPCS: 59025; G0378

== ENCOUNTER 2021-10-16 08:57 | Observation (INO) | payer OTHER ==
[2021-10-16 10:07] VITALS: BP 121/68; PULSE 96
--- NOTE | 2021-10-16 10:17 | XRAY ---
Indication: observation. Hypertension. Ultrasound biophysical profile study performed. Comparison: October 05, 2021. Again single intrauterine with heart rate 150 BPM. Four-quadrant NAIMA is 15.2 cm, largest pocket 6.4 cm. 2 points given for breathing, movements, tone, and amniotic fluid volume. Impression: Total biophysical profile score remains 8 out of 8.
== END 2021-10-16 10:25 | disposition home or self-care (01) ==
LOC: OB 08:57
PROVIDERS: ADMIT Family Medicine; ATTEND Family Medicine
DX: Z34.83 Encounter for supervision of other normal pregnancy, third trimester (principal); Z3A.35 35 weeks gestation of pregnancy
CPT/HCPCS: 59025; 76818; G0378

== ENCOUNTER 2021-10-29 02:21 | Inpatient (IN) | payer OTHER ==
[2021-10-29] MEDS ORDERED: XYLOCAINE 1% HCL 20 ML MDV IJ PRN (02:43)
[2021-10-29] MEDS ORDERED: Lactated Ringers 1,000 ML IV SCH (03:00)
[2021-10-29] MEDS ORDERED: PITOCIN 30 UNITS/ LR 500 ML 30 UNITS/500 ML PLAST..BAG IV SCH (03:00)
[2021-10-29 03:14] LABS: Absolute Neutrophil Ct (ANC) 14.33 (1.4-6.9); Basophil (Absolute #) 0.03 (0-0.4); Eosinophil % 0.7 % (0.00-5.0); Eosinophil (Absolute #) 0.14 (0-0.5); Hematocrit 33.5 % (35-47); Hemoglobin 10.9 gm/dl (12.0-16.0); Lymphocyte (Absolute #) 3.51 (1.0-4.6); Lymphocytes % 18.3 % (24.0-44.0); Mean Cell Volume 95.7 fl (78-100); Mean Corpuscular Hemoglobin 31.1 pg (26-32); Mean Corpuscular Hgb Concent. 32.5 g/dl (32-36); Mean Platelet Volume 9.2 fl (7.5-11.0); Monocyte (Absolute #) 1.12 (0.0-1.3); Monocytes % 5.9 % (0.0-12.0); Neutrophil % 74.9 % (36.0-66.0); Platelet Count 325 K/mm3 (150-450); Red Cell Distribution Width 12.8 % (11.5-14.0); White Blood Count 19.1 K/mm3 (4.0-10.5)
[2021-10-29] MEDS: CLINDAMYCIN-D5W 900 MG/50 ML*** 900 MG/50 ML BAG IV SCH ×2 (03:18→15:16)
[2021-10-29 03:48] LABS: ABO TYPING A; Antibody Screen NEGATIVE (NEGATIVE); RH TYPING NEGATIVE
[2021-10-29] MEDS ORDERED: STADOL 2 MG ONE (03:53)
[2021-10-29] MEDS ORDERED: STADOL 2 MG IV PRN (04:00)
[2021-10-29 04:22] LABS: Appearance CLOUDY (CLEAR); Bacteria MANY /HPF (NEGATIVE); Bilirubin NEGATIVE (NEGATIVE); Blood LARGE Ery/ul (0-5); Epithelial Cells FEW /HPF (FEW); Glucose NEGATIVE (NEGATIVE); Ketones NEGATIVE (NEGATIVE); Leukocyte Esterase TRACE (NEGATIVE); Mucus SLIGHT /HPF (NEGATIVE); Nitrite NEGATIVE (NEGATIVE); Protein,Urine Dip 100 (Negative); Specific Gravity 1.019 (1.005-1.025); Urobilinogen NEGATIVE mg/dL (0-1)
[2021-10-29 04:23] LABS: RBC >101 /HPF (0-2)
[2021-10-29] MEDS ORDERED: MOTRIN 400 MG PO PRN (09:04)
[2021-10-29] MEDS ORDERED: TUCKS TP PRN (09:04)
[2021-10-29] MEDS ORDERED: TYLENOL EXTRA STRENGTH 500 MG PO PRN (09:04)
[2021-10-29] MEDS ORDERED: Anucort-HC SUPPOSITORY PR PRN (09:04)
[2021-10-29] MEDS ORDERED: CORTISONE 1% CREAM TP PRN (09:04)
[2021-10-29] MEDS ORDERED: Mylicon 80MG PO PRN (09:04)
[2021-10-29] MEDS ORDERED: Dermoplast Spray TP PRN (10:00)
[2021-10-29 10:09] VITALS: O2SAT 97
[2021-10-29] MEDS: Colace 100 MG PO SCH ×2 (14:53→22:00)
[2021-10-29] MEDS: FERREX 150 PO SCH (14:54)
[2021-10-29] MEDS ORDERED: Rhogam Plus 300 MCG IM ONE (15:00)
[2021-10-29] MEDS ORDERED: Adacel Vial IM ONE (15:00)
[2021-10-29 20:06] LABS: Amphetamine,Urine NEGATIVE (NEGATIVE); Cocaine,Urine NEGATIVE (NEGATIVE); Methadone,Urine NEGATIVE (NEGATIVE); Opiate,Urine NEGATIVE (NEGATIVE); PCP,Urine NEGATIVE (NEGATIVE); THC,Urine NEGATIVE (NEGATIVE)
[2021-10-29 20:09] LABS: Barbiturate,Urine NEGATIVE (NEGATIVE); Benzodiazepine,Urine NEGATIVE (NEGATIVE)
[2021-10-30 05:33] LABS: Absolute Neutrophil Ct (ANC) 11.66 (1.4-6.9); Basophil (Absolute #) 0.04 (0-0.4); Eosinophil % 0.6 % (0.00-5.0); Eosinophil (Absolute #) 0.11 (0-0.5); Hematocrit 31.2 % (35-47); Hemoglobin 10.1 gm/dl (12.0-16.0); Lymphocyte (Absolute #) 5.07 (1.0-4.6); Mean Cell Volume 97.2 fl (78-100); Mean Corpuscular Hemoglobin 31.5 pg (26-32); Mean Corpuscular Hgb Concent. 32.4 g/dl (32-36); Mean Platelet Volume 8.9 fl (7.5-11.0); Monocytes % 6.6 % (0.0-12.0); Neutrophil % 64.6 % (36.0-66.0); Platelet Count 265 K/mm3 (150-450); Red Blood Count 3.21 M/mm3 (4.1-5.4); Red Cell Distribution Width 12.9 % (11.5-14.0); White Blood Count 18.1 K/mm3 (4.0-10.5)
--- NOTE | 2021-10-30 08:13 | PCM.DS ---
Discharge Summary Date of Admission: 10/29/21 02:21 Admitting Physician: MACARENA MORE Primary Care Provider: MACARENA MORE Allergies Allergies Penicillins Allergy (Severe, Verified 10/16/21 10:16) Hospital Summary - Hospital Course Hospital Course: patient arrived in active labor at 36 6/7 wks, mild preeclampsia and previous hx of demise, was comanaged with MFM. uncomplicated vaginal delivery, mild lochia and doing great , planning for BTL with Dr Rankin - Vitals & Intake/Output Vital Signs: Vital Signs Temperature 98.5 F 10/30/21 02:00 Pulse Rate 70 10/30/21 02:00 Respiratory Rate 18 10/30/21 02:00 Blood Pressure 117/69 10/30/21 02:00 O2 Sat by Pulse Oximetry 97 10/29/21 10:39 Intake & Output: Intake & Output 10/27/21 10/28/21 10/29/21 10/30/21 11:59 11:59 11:59 11:59 Intake Total 100 500 Balance 100 500 Weight 244 kg 110.677 kg - Lab Result Diagrams: 10/30/21 05:27 Lab Results-Last 24 Hrs: Lab Results-Last 24 Hours 10/29/21 10/29/21 10/30/21 Range/Units 04:05 10:32 05:27 WBC 18.1 H (4.0-10.5) K/mm3 RBC 3.21 L (4.1-5.4) M/mm3 Hgb 10.1 L (12.0-16.0) gm/dl Hct 31.2 L (35-47) % MCV 97.2 (78-100) fl MCH 31.5 (26-32) pg MCHC 32.4 (32-36) g/dl RDW 12.9 (11.5-14.0) % Plt Count 265 (150-450) K/mm3 MPV 8.9 (7.5-11.0) fl Gran % 64.6 (36.0-66.0) % Eos # (Auto) 0.11 (0-0.5) Absolute Lymphs (auto) 5.07 H (1.0-4.6) Absolute Monos (auto) 1.20 (0.0-1.3) Lymphocytes % 28.0 (24.0-44.0) % Monocytes % 6.6 (0.0-12.0) % Eosinophils % 0.6 (0.00-5.0) % Basophils % 0.2 (0.0-0.4) % Absolute Granulocytes 11.66 H (1.4-6.9) Basophils # 0.04 (0-0.4) Urine Opiates Level NEGATIVE (NEGATIVE) Ur Methadone NEGATIVE (NEGATIVE) Urine Barbiturates NEGATIVE (NEGATIVE) Ur Phencyclidine (PCP) NEGATIVE (NEGATIVE) Urine Amphetamine NEGATIVE (NEGATIVE) U Benzodiazepine Level NEGATIVE (NEGATIVE) Urine Cocaine NEGATIVE (NEGATIVE) Urine Marijuana (THC) NEGATIVE (NEGATIVE) Screen SEE SEPARATE REPORT Discharge Exam General Appearance: no apparent distress Neurologic Exam: alert, oriented x 3 Respiratory Exam: normal breath sounds, lungs clear, No respiratory distress Cardiovascular Exam: regular rate/rhythm, normal heart sounds Gastrointestinal/Abdomen Exam: soft, No tenderness, No mass Extremity Exam: normal inspection, normal range of motion Final Diagnosis/Problem List - Final Discharge Diagnosis/Problem (1) Normal vaginal delivery Current Visit: No Status: Acute Code(s): O80 - ENCOUNTER FOR FULL-TERM UNCOMPLICATED DELIVERY - Discharge Disposition: Home, Self-Care Condition: Stable Prescriptions: Discontinued Vits W-Ca,Fe,FA(<1Mg) [] 1 each PO DAILY Ferrous Sulfate 325 mg [Feosol 325 mg] 325 mg PO BID Follow up with: MACARENA MORE MD [Primary Care Provider] - 6 weeks LEMUEL RANKIN DO [ACTIVE STAFF] - Call for Appointment (schedule for tubal consult, has already signed consent in office)
[2021-10-30] MEDS: Colace 100 MG PO SCH (12:09)
[2021-10-30] MEDS: FERREX 150 PO SCH (12:09)
[2021-10-30 13:32] LABS: HBsAg Screen Negative (Negative)
[2021-10-30 14:53] VITALS: BP 116/75; PULSE 94
== END 2021-10-30 15:00 | disposition home or self-care (01) | DRG 807 ==
LOC: OBSVTOIN 02:21 → OB 02:21
PROVIDERS: ADMIT Family Medicine; ATTEND Family Medicine
PROC: 10E0XZZ Delivery of Products of Conception, External Approach (ICD-10-PCS; principal; 2021-10-29)
DX: O14.04 Mild to moderate pre-eclampsia, complicating childbirth (principal); Z37.0 Single live birth; Z87.59 Personal history of other complications of pregnancy, childbirth and the puerperium; Z3A.36 36 weeks gestation of pregnancy
CPT/HCPCS: 36415; 80307; 81001; 81003; 85025; 85461; 86850; 86900; 86901; 87081; 87086; 87340; 90384; 90715; 96372; J0595; J2590; J2790; A9270-GY

== ENCOUNTER 2021-12-15 07:01 | Day surgery (SDC) | payer OTHER ==
[2021-12-15] MEDS ORDERED: Transderm Scop 1.5MG Patch TOP PRN (07:08)
[2021-12-15] MEDS ORDERED: CLINDAMYCIN-D5W 900 MG/50 ML*** 900 MG/50 ML BAG IV STA (07:09)
[2021-12-15] MEDS ORDERED: Sensorcaine 0.25% 10 ML ONE (07:14)
[2021-12-15] MEDS ORDERED: Lactated Ringers 1,000 ML IV ONE ×2 (07:22→09:30)
[2021-12-15] MEDS ORDERED: CLINDAMYCIN-D5W 900 MG/50 ML*** 900 MG/50 ML BAG IV ONE (07:25)
[2021-12-15] MEDS ORDERED: Transderm Scop 1.5MG Patch ONE (07:25)
[2021-12-15] MEDS ORDERED: Lactated Ringers 1,000 ML IV SCH (07:30)
[2021-12-15] MEDS ORDERED: Versed 2 MG/2 ML Injection ONE (08:08)
[2021-12-15] MEDS ORDERED: Zemuron 100 MG/10 ML ONE (08:10)
[2021-12-15] MEDS ORDERED: Quelicin Fliptop 200 MG/10 ML ONE (08:10)
[2021-12-15] MEDS ORDERED: DIPRIVAN 200 MG/20 ML IV ONE (08:10)
[2021-12-15] MEDS ORDERED: Decadron 4 MG INJ ONE (08:10)
[2021-12-15] MEDS ORDERED: Zofran 4 MG/2 ML VIAL ONE (08:10)
[2021-12-15] MEDS ORDERED: Xylocaine-Mpf 2% 5 Ml Vial ONE (08:10)
[2021-12-15] MEDS ORDERED: TORAdol 30 mg Injection ONE (08:10)
[2021-12-15] MEDS ORDERED: SUBLIMAZE 100 MCG/2 ML ONE ×2 (08:12→09:08)
[2021-12-15] MEDS ORDERED: Pre-Attached Lta Kit TP ONE (08:12)
[2021-12-15] MEDS ORDERED: BLOXIVERZ IV ONE (08:47)
[2021-12-15] MEDS ORDERED: Hydromorphone 1 mg/ml Injection ONE (09:14)
[2021-12-15 10:55] LABS: Appearance CLEAR (CLEAR); Bacteria RARE /HPF (NEGATIVE); Bilirubin NEGATIVE (NEGATIVE); Blood MODERATE Ery/ul (0-5); Epithelial Cells RARE /HPF (FEW); Glucose NEGATIVE (NEGATIVE); Ketones NEGATIVE (NEGATIVE); Leukocyte Esterase NEGATIVE (NEGATIVE); Nitrite NEGATIVE (NEGATIVE); Protein,Urine Dip NEGATIVE (Negative); Specific Gravity 1.015 (1.005-1.025); Urobilinogen NEGATIVE mg/dL (0-1)
[2021-12-15 12:04] LABS: WBC NONE SEEN /HPF (0-5)
[2021-12-15 13:55] VITALS: BP 138/72; PULSE 72; O2SAT 98
--- NOTE | 2021-12-16 08:28 | OP ---
SURGERY DATE/TIME: 12/15/2021818 PREOPERATIVE DIAGNOSIS: Multiparity desiring tubal sterilization. POSTOPERATIVE DIAGNOSIS: Multiparity desiring tubal sterilization. PROCEDURE: Laparoscopic tubal sterilization via Falope ring application. SURGEON: Kai Rankin D.O. DIRECTOR CREDIT RISK: Sukumar Gonzalez surgical consultant. ANESTHESIA: General. ESTIMATED BLOOD LOSS: Minimal. COMPLICATIONS: None. INDICATIONS: The risks, benefits, indications and alternatives of the procedure were reviewed with the patient prior to the procedure. The patient understood the risk of infection, bleeding, bowel injury, bladder injury, ureteral injury, uterine perforation, thromboembolic disorder, possible and ectopic that may be associated with after having this procedure however desires to have this procedure as a possible means to alleviate her current control. All other forms of control were discussed with the patient prior to the procedure and desires to have sterilization as a form of control. DESCRIPTION OF PROCEDURE AND FINDINGS: From this point the patient is taken to the operating room, given general sedation, placed in dorsal lithotomy position, prepped and draped in the usual sterile fashion. A weighted speculum is then placed in the patient's vagina and the anterior lip of the cervix is grasped with a single tooth tenaculum. Endocervical dilator placed through the endocervical region to dilate the cervix and a uterine manipulator was then placed through the endocervical canal as a means to manipulate the uterus. Attention was then turned to the patient's abdomen where a 5 mm skin incision was made in the umbilical fold. A 5 mm trocar and sleeve were advanced under direct visualization where pneumoperitoneum was obtained with 4 liters of CO2 gas. From this point, visualization of the abdominopelvic region appeared to be within normal limits with no gross abnormalities that were noted. An additional incision was made 2 cm above the symphysis pubis where an 8 mm incision was made and 8 mm trocar and sleeve were advanced under direct visualization. From this point, the Falope ring applicator was then placed through the trocar site. The uterus was elevated and the left fallopian tube was identified along the isthmic region of the tube. The applicator was then applied to isthmic region and a knuckle of tube was grasped and a Falope ring was placed on the tube and hemostasis obtained. The Falope ring applicator was reloaded and the same procedure was performed on the right tube on the isthmic region where the Falope ring was displaced on the tube with excellent placement and hemostasis was obtained. From this point the Falope ring applicator was removed. There were no other abnormalities located in the abdominopelvic region. All instruments were removed from the patient's abdominal region at this time. CO2 was released. The incisions were closed with 4-0 Monocryl suture. After closure the patient was then taken out of the dorsal lithotomy position, was taken out of anesthesia and was then taken to the recovery room in stable condition. All instruments and laps were accounted for x2.
== END 2021-12-15 11:10 | disposition home or self-care (01) ==
LOC: SDC 07:01
PROVIDERS: ATTEND Obstetrics & Gynecology
DX: Z30.2 Encounter for sterilization (principal)
CPT/HCPCS: 81001; 84703; 87086; J0330; J1100; J1170; J1885; J2250; J2405; J2704; J2710; J3010; A9270-GY

== ENCOUNTER 2025-08-27 06:13 | Day surgery (SDC) | payer OTHER ==
[2025-08-27] MEDS ORDERED: ASTRINGYN 8 GM TP ONE (06:28)
[2025-08-27] MEDS ORDERED: XYLOCAINE 1%/Epi 1:100000 MDV 20 ML ONE (06:28)
[2025-08-27 06:29] LABS: HCG URINE TEST NEGATIVE (NEGATIVE)
[2025-08-27] MEDS: CLINDAMYCIN-D5W 900 MG/50 ML*** 900 MG/50 ML BAG IV ONE (06:37)
[2025-08-27] MEDS: Lactated Ringers 1,000 ML IV SCH (06:38)
[2025-08-27 06:49] VITALS: RESP 18
[2025-08-27] MEDS ORDERED: Zofran 4 MG/2 ML VIAL ONE (08:20)
[2025-08-27] MEDS ORDERED: TORAdol 30 mg Injection ONE (08:20)
[2025-08-27] MEDS ORDERED: propofoL IV ONE (08:20)
[2025-08-27 09:11] VITALS: O2SAT 99
[2025-08-27 09:43] VITALS: BP 131/93; PULSE 69; TEMP 97.5
--- NOTE | 2025-08-29 10:37 | OP ---
SURGERY DATE/TIME: 08/27/2025 [id number] PREOPERATIVE DIAGNOSIS: Severe cervical dysplasia. POSTOPERATIVE DIAGNOSIS: Severe cervical dysplasia. PROCEDURE: Loop electrosurgical excision procedure or LEEP. SURGEON: Babar Rankin DO WEB CONTENT EDITOR: Cecilia Mccray CST ANESTHESIA: General. ESTIMATED BLOOD LOSS: Minimal. COMPLICATIONS: None. DESCRIPTION OF PROCEDURE AND FINDINGS: The risks, benefits, indications, and alternatives of the procedure were reviewed with the patient prior to the procedure. The patient understood the risks of infection, bleeding, bowel injury, bladder injury, uterine perforation, pelvic infection, cervical incompetence, reduced orgasm, thromboembolic disorder associated with this procedure, and desires to have the surgery as a possible means to alleviate her current medical condition. At this point, the patient was taken to the operating room, given general sedation, placed in dorsal lithotomy position, and prepped and draped in the usual sterile fashion. A coated speculum was then placed in the patient's vagina, and the cervix was then injected circumferentially with 1% lidocaine with epinephrine where approximately 10 mL was used. From this point, a loop instrument was then used to excise the ectocervical portion with a right to left motion with an in depth of 7 to 8 mm of ectocervical tissue that was excised that was done so without complication. An additional 2 to 3 mm of endocervical tissue was excised in a similar fashion. The cervical stump was then coagulated with a ball farmer vegetable and hemostasis was obtained. From this point, all instruments were removed from the patient's vaginal area. The patient was then taken out of the dorsal lithotomy position, was taken out of anesthesia, and was then taken to the recovery room in stable condition. All instruments and laps were accounted for x2.
== END 2025-08-27 09:42 | disposition home or self-care (01) ==
LOC: SDC 06:13
PROVIDERS: ATTEND Obstetrics & Gynecology
DX: D06.9 Carcinoma in situ of cervix, unspecified (principal)